=== PATIENT | male | born 1965 | race Caucasian/White ===

== ENCOUNTER 2019-04-07 09:56 | Emergency (ER) | payer MEDICAID, SELFPAY ==
[2019-04-07 10:09] VITALS: BP 154/110; PULSE 95; TEMP 36.3
--- NOTE | 2019-04-07 10:10 | DI.RAD_ITS ---
EXAM: XR ANKLE LT COMPLETE INDICATION: fell, pain at lateral ankle. COMPARISON: No exams were available for comparison TECHNIQUE: 2D digital imaging was performed. FINDINGS: SOFT TISSUE SWELLING IS NOTED OVER THE LATERAL MALLEOLUS. NO FRACTURE OR DISLOCATION IS DEMONSTRATED.
--- NOTE | 2019-04-07 10:16 | ED.GENADUL_ITS ---
Discharge Plan Disposition Patient Disposition: HOME Condition: Good Discharge Details Chief Complaint: Orthopedic Clinical Impression: Left ankle sprain Primary Care Provider: Sonia,Local ED Provider: Sanchez Ghosh Discharge Instructions Instructions: Ankle Sprain (ED) Additional Instructions: Your x-ray shows no signs of fractures at this point. Please keep the walking boot on for stabilization, continue to use the crutches as often as possible to keep any weight off your ankle or foot. Please follow-up closely with your primary care provider. Continue to elevate, use ice, Tylenol and Motrin for pain. If you have no improvement of your symptoms with conservative therapy over the next 1 to 2 weeks you may require further imaging. If you notice any worsening of your symptoms, or any new symptoms such as vomiting, diarrhea, fever, chills, shortness of breath, chest pain, numbness, weakness, or fainting , please return immediately to the emergency department for reevaluation. Please follow up with your primary care provider as soon as possible for reassessment and reevaluation. As always, it was a pleasure participating in your medical care today. Medical Decision Making This is a pleasant 54-year-old male who presents today for evaluation of left ankle pain. Yesterday he fell 8 feet and landed on his left ankle, he did not have any popping or cracking at that time. Has notable pain in the lateral aspect of his left ankle since then especially when bearing weight. No significant pain with not bearing weight. Exam demonstrates tenderness in that area mild swelling, no evidence of neurovascular compromise or weakness. Differential includes fracture of the distal fibula versus notable sprain. We will get an x-ray to rule out fracture. 10:56 AM X-ray results have returned negative for any acute fracture per radiology. We will give a equalizer walking boot, he already has crutches. Recommend continued rice therapy. Discussed the importance of close follow-up. Diagnosis ankle sprain. I have extensively reviewed the treatment plan and discharge instructions with the patient and their family. I have addressed all patient concerns at this time. The patient and family was made aware of what symptoms to monitor for that would warrant a return to the emergency department. Discussed the plan with the patient and family, they demonstrate verbal understanding and agreement with our assessment and plan at this time. HPI General Date/Time Provider Initiated Documentation: 04/07/19 10:02 . HPI Narrative: This is a 54-year-old male with no segment past medical history except for hypertension who presents today for evaluation of left ankle pain. The patient states that he was doing trusses yesterday when he fell and landed on the left lateral aspect of his ankle with his complete weight. He has been unable to bear weight on it since then. He denies hearing any pop or snap. He has no pain when not applying weight, however when he bears weight he does have significant pain. He denies any numbness or tingling. He denies any pain in his knee or rhoades. He has no other complaints at this time. No other modifying factors. He has been taking NSAIDs, ice, and elevating it. General Stated Complaint: Orthopedic JOHN: 4 Review of Systems Review of Systems ROS Unobtainable: All systems reviewed & are unremarkable except as noted in HPI and below PFSH Social History Smoking/Tobacco Use Status: Never Alcohol Intake: never Drug use: Never Substance use type: does not use Do you feel safe at home: Yes Do you feel safe in your relationship?: Yes Exam Narrative Exam Narrative: 1.Const: Well-nourished, Well-developed, appearing stated age 2.Eyes: PERRL, no conjunctival injection, and symmetrical lids. 3.ENT: Atraumatic external nose and ears. Moist MM. Neck: Symmetric, trachea midline, No thyromegaly. 4.CVS: +S1/S2, No murmurs or gallops. Peripheral pulses 2+ and equal in all extremities. Brisk capillary refill in all extremities. 5.RESP: Unlabored respiratory effort. Clear to auscultation bilaterally. No wheezes rales or rhonchi 6.GI: Soft, Nontender/Nondistended, No hepatosplenomegaly. No guarding or rebound. 7.MSK: Normocephalic, Extremities w/o deformity, No cyanosis or clubbing. Left lower extremity evaluation of the left ankle demonstrates mild swelling but minimal tenderness on the left lateral malleolus, pain with deep palpation. Normal strength for flexion extension inversion and eversion. He demonstrates a normal neurovascular exam with normal capillary refill, normal movement of the toes. No evidence of significant weakness. Knee exam is normal for flexion extension side bending rotations. No evidence of trauma or tenderness. 8.Skin: Warm, Dry. No rashes or lesions. 9.Neuro: client services vice president II-XII grossly intact. Sensation grossly intact, no focal neurologic deficits. 10.Psych: (AAO) x3. Appropriate mood and affect Course Vital Signs Vital signs: Vital Signs Temperature 36.3 C L 04/07/19 10:09 Pulse 95 H 04/07/19 10:09 Blood Pressure 154/110 H 04/07/19 10:09 Temperature 36.3 C L 04/07/19 10:09 Temperature Source Tympanic 04/07/19 10:09 Pulse 95 H 04/07/19 10:09 Respiratory Effort Non-Labored 04/07/19 10:09 Blood Pressure 154/110 H 04/07/19 10:09
[2019-04-07 11:01] VITALS: BP 132/87; PULSE 88; TEMP 36.7
[2019-04-07 11:10] VITALS: BP 132/87; PULSE 88; TEMP 36.7
== END 2019-04-07 11:10 | disposition home or self-care (01) ==
LOC: ER 11:48
PROVIDERS: Emergency Provider Student in an Organized Health Care Education/Training Program; PCP Physician Assistant
DX: S93.402A Sprain of unspecified ligament of left ankle, initial encounter (principal); W17.89XA Other fall from one level to another, initial encounter
CPT/HCPCS: 29515; 99283; 73610; 99282; L4361

== ENCOUNTER 2022-06-26 16:02 | Outpatient (REF) | payer OTHER, SELFPAY ==
[2022-06-26 17:04] LABS: Hemoglobin A1C 5.9 % (<5.7)
[2022-06-26 17:09] LABS: ALT 39 U/L (16-63); AST 16 U/L (15-37); Albumin 4.3 g/dL (3.4-5.0); Alkaline Phosphatase 70 U/L (46-116); Anion Gap 8.1 mmol/L (3-11); BUN 23 mg/dL (7-18); Bilirubin, Total 0.7 mg/dL (0.2-1.0); CO2 26.9 mmol/L (21.0-32.0); CREATININE 1.2 mg/dL (0.70-1.30); Calcium 9.1 mg/dL (8.5-10.1); Calculated LDL 143 mg/dL (<100); Chloride 103 mmol/L (98-107); Cholesterol 245 mg/dL (<200); Estimated GFR 70.98 (mL/min/1.73m2); Glucose 112 mg/dL (74-106); HDL Cholesterol 45 mg/dL (40-60); Potassium 4.5 mmol/L (3.5-5.1); Sodium 138 mmol/L (136-145); Total Protein 7.2 g/dL (6.4-8.2); Triglyceride 289 mg/dL (<150)
[2022-06-29 09:37] LABS: PSA, Screening 0.5 ng/mL (<=3.5)
== END 2022-06-26 16:03 | disposition home or self-care (01) ==
LOC: NCHCN 16:02
PROVIDERS: PCP Physician Assistant; Visit Provider Physician Assistant
DX: Z12.5 Encounter for screening for malignant neoplasm of prostate (principal); R73.9 Hyperglycemia, unspecified; E78.5 Hyperlipidemia, unspecified
CPT/HCPCS: 80053; 80061; 84153; 83036

== ENCOUNTER 2023-10-06 09:41 | Outpatient (REF) | payer OTHER, SELFPAY ==
[2023-10-06 15:39] LABS: ALT 41 U/L (16-63); AST 14 U/L (15-37); Albumin 4.3 g/dL (3.4-5.0); Alkaline Phosphatase 105 U/L (46-116); BUN 24 mg/dL (7-18); Bilirubin, Total 1.2 mg/dL (0.2-1.0); Calcium 9.1 mg/dL (8.5-10.1); Calculated LDL 178 mg/dL (<100); Chloride 102 mmol/L (98-107); Cholesterol 270 mg/dL (<200); Estimated GFR 87.78 (mL/min/1.73m2); Glucose 314 mg/dL (74-106); HDL Cholesterol 45 mg/dL (40-60); Potassium 4.5 mmol/L (3.5-5.1); Sodium 137 mmol/L (136-145); Total Protein 7.1 g/dL (6.4-8.2); Triglyceride 239 mg/dL (<150)
[2023-10-06 23:13] LABS: PSA, Screening 0.4 ng/mL (<=3.5)
== END 2023-10-06 09:42 | disposition home or self-care (01) ==
LOC: NCHCN 09:41
PROVIDERS: PCP Physician Assistant; Visit Provider Physician Assistant
DX: R73.03 Prediabetes (principal)
CPT/HCPCS: 80053; 80061; 84153; 83036

== ENCOUNTER 2024-08-18 11:56 | Outpatient (REF) | payer OTHER, SELFPAY ==
[2024-08-18 15:55] LABS: Hemoglobin A1C 5.9 % (<5.7)
[2024-08-18 16:00] LABS: ALT 40 U/L (16-63); AST 23 U/L (15-37); Albumin 4.5 g/dL (3.4-5.0); Alkaline Phosphatase 70 U/L (46-116); Anion Gap 9.6 mmol/L (3-11); BUN 18 mg/dL (7-18); Bilirubin, Total 0.84 mg/dL (0.2-1.0); CO2 28.4 mmol/L (21.0-32.0); CREATININE 1.3 mg/dL (0.70-1.30); Calcium 9.3 mg/dL (8.5-10.1); Calculated LDL 86 mg/dL (<100); Chloride 105 mmol/L (98-107); Cholesterol 155 mg/dL (<200); Estimated GFR 63.68 (mL/min/1.73m2); Glucose 109 mg/dL (74-106); HDL Cholesterol 47 mg/dL (40-60); Potassium 4.4 mmol/L (3.5-5.1); Sodium 143 mmol/L (136-145); Total Protein 7.3 g/dL (6.4-8.2); Triglyceride 114 mg/dL (<150)
== END 2024-08-18 11:57 | disposition home or self-care (01) ==
LOC: NCHCN 11:56
PROVIDERS: PCP Physician Assistant; Visit Provider Physician Assistant
DX: E11.9 Type 2 diabetes mellitus without complications (principal)
CPT/HCPCS: 80053; 80061; 83036